=== PATIENT | male | born 1980 | race Caucasian/White ===

== ENCOUNTER 2023-12-25 11:10 | Day surgery (SDC) | payer BC ==
[2023-12-24 10:10] VITALS: BMI 25.6
[2023-12-25] MEDS ORDERED: PROPOFOL 40 ML ONE (12:26)
[2023-12-25] MEDS ORDERED: fentaNYL PF 100 MCG/2 ML SYRINGE ONE (12:26)
[2023-12-25] MEDS ORDERED: Ondansetron PF 4 MG/2 ML Vial ONE (12:27)
[2023-12-25] MEDS ORDERED: Rocuronium Bromide 10 MG/ML (10ML VIAL) ONE (12:27)
[2023-12-25] MEDS ORDERED: Dexamethasone 20 MG/5 ML VIAL ONE (12:27)
[2023-12-25] MEDS ORDERED: Lidocaine 1% PF 5 ML VIAL ONE (12:27)
[2023-12-25] MEDS ORDERED: EPINEPHrine 1 MG/ML VIAL ONE (12:52)
[2023-12-25] MEDS ORDERED: Lidocaine 1% (PF) 30 ML VIAL ONE (12:52)
[2023-12-25] MEDS ORDERED: Midazolam HCl 2 mg/2 ml Vial ONE (13:24)
[2023-12-25] MEDS ORDERED: CEFAZOLIN 1 GM VIAL ONE (14:09)
[2023-12-25] MEDS ORDERED: SUGAMMADEX SODIUM 200 MG/2 ML VIAL ONE (14:26)
[2023-12-25] MEDS ORDERED: fentaNYL 50 mcg/mL 1 mL Vial ONE (15:17)
[2023-12-25] MEDS ORDERED: HYDROmorphone 0.5 MG/0.5 ML SYRINGE ONE ×2 (15:29→15:39)
== END 2023-12-25 16:48 | disposition home or self-care (01) ==
LOC: SDC 11:10
PROVIDERS: ATTEND Otolaryngology Plastic Surgery within the Head & Neck
PROC: 07B20ZX Excision of Left Neck Lymphatic, Open Approach, Diagnostic (ICD-10-PCS; principal; 2023-12-25)
DX: R59.0 Localized enlarged lymph nodes (principal); K11.1 Hypertrophy of salivary gland; I10 Essential (primary) hypertension; Z87.891 Personal history of nicotine dependence; Z90.89 Acquired absence of other organs
CPT/HCPCS: 88184; 88307; 88341; 88342; 93005; 93010; J0171; J0690; J1100; J1170; J2001; J2250; J2405; J2704; J3010